=== PATIENT | female | born 1965 | race Hispanic/Latino ===

== ENCOUNTER 2022-09-08 16:30 | Inpatient (IN) | payer OTHER ==
[~2022-09-08] VITALS: Ht 167.6 cm; Wt 92.1 kg
[2022-09-08] MEDS ORDERED: ASPIRIN 325MG TAB PO ONE (17:00)
[2022-09-08 17:01] LABS: BASOPHILS % (AUTO) 1.1 % (0.0-5.0); EOSINOPHILS % (AUTO) 11.6 % (0.0-8.0); HEMATOCRIT 35.4 % (36-48); LYMPHOCYTES % (AUTO) 34.5 % (21.0-51.0); MEAN CORPUSCULAR HEMOGLOBIN 29.6 pg (27.0-33.0); MEAN CORPUSCULAR HGB CONC 33.1 g/dL (32.0-36.0); MEAN CORPUSCULAR VOLUME 89.6 fL (79-99); MONOCYTES % (AUTO) 5.3 % (3.0-13.0); NEUTROPHILS % (AUTO) 47.1 % (40.0-77.0); PLATELET COUNT (AUTO) 367 K/uL (130-400); RED BLOOD CELL COUNT(AUTO) 3.95 MIL/uL (4.00-5.50); RED CELL DISTRIBUTION WIDTH 12.7 % (11.0-15.5); WHITE BLOOD COUNT (AUTO) 14.7 K/uL (4.8-10.8)
[2022-09-08 17:10] LABS: INR 0.95 (0.85-1.15); PROTHROMBIN TIME 10.4 SEC (9.6-11.6)
[2022-09-08 17:11] LABS: CREATININE 1.2 mg/dL (0.5-1.5); POTASSIUM 4.3 mmol/L (3.5-5.1)
[2022-09-08 17:12] LABS: PARTIAL THROMBOPLASTIN TIME 30.2 SEC (26.3-35.5)
[2022-09-08 17:15] LABS: ALBUMIN 3.8 g/dL (3.5-5.0); TOTAL PROTEIN, SERUM 7.6 g/dL (6.0-8.3)
[2022-09-08 17:30] LABS: B-TYPE NATRIURETIC PEPTIDE 213 pg/mL (0-100)
[2022-09-08] MEDS ORDERED: MORPHINE 4 MG SYG IV PRN (21:00)
[2022-09-08] MEDS ORDERED: POTASSIUM CHLORIDE 20MEQ/100ML 100 ML IV PRN (21:00)
[2022-09-08] MEDS ORDERED: ONDANSETRON 4MG INJ IV PRN (21:00)
[2022-09-08] MEDS ORDERED: KCL 20 MEQ ERTAB PO PRN (21:00)
[2022-09-08] MEDS ORDERED: MORPHINE 2 MG SYG IV PRN (21:00)
[2022-09-08] MEDS ORDERED: POTASSIUM CHLORIDE 10% ELIXIR 20 MEQ/15 ML UDCUP PO PRN (21:00)
[2022-09-08] MEDS ORDERED: ACETAMINOPHEN 325 MG TAB PO PRN ×2 (21:00)
[2022-09-08] MEDS: NITROGLYCERIN 1GM OINT 1 INCH/1GM TD SCH (21:43)
[2022-09-08 22:29] VITALS: BP 163/74
[2022-09-08] MEDS ORDERED: SITA1TAB6 PO (23:23)
[2022-09-08] MEDS ORDERED: ISOS10TA2 PO (23:23)
[2022-09-08] MEDS ORDERED: PANT20TA18 PO (23:23)
[2022-09-08] MEDS ORDERED: TELM80TA2 PO (23:23)
[2022-09-08] MEDS ORDERED: CLOP-31 PO (23:23)
[2022-09-08 23:47] LABS: APPEARANCE,URINE CLEAR (CLEAR); BILIRUBIN,URINE NEGATIVE (NEGATIVE); COLOR,URINE LIGHT-YELLOW (YELLOW); GLUCOSE, URINE (UA) NEGATIVE (NEGATIVE); KETONES,URINE NEGATIVE (NEGATIVE); LEUKOCYTE ESTERASE ,URINE 250 Leu/uL (NEGATIVE); NITRATE,URINE NEGATIVE (NEGATIVE); OCCULT BLOOD,URINE NEGATIVE (NEGATIVE); PH,URINE 5.5 (5.0-8.0); PROTEIN,URINE NEGATIVE (NEGATIVE); UROBILINOGEN,URINE 0.2 mg/dL (0.2-1.0)
[2022-09-08 23:52] LABS: MUCUS,URINE RARE LPF (None Seen); SQUAMOUS EPITHELIAL CELL,UR FEW /HPF (0-2); WBC,URINE 26-50 /HPF (0-1)
[2022-09-09] VITALS: BP 129/72
[2022-09-09 04:00] VITALS: BP 122/68
[2022-09-09 05:07] LABS: EOSINOPHILS % (AUTO) 12.9 % (0.0-8.0); HEMATOCRIT 33.5 % (36-48); LYMPHOCYTES % (AUTO) 37.8 % (21.0-51.0); MEAN CORPUSCULAR HEMOGLOBIN 29.8 pg (27.0-33.0); MEAN CORPUSCULAR HGB CONC 33.4 g/dL (32.0-36.0); MEAN CORPUSCULAR VOLUME 89.1 fL (79-99); MONOCYTES % (AUTO) 7.5 % (3.0-13.0); NEUTROPHILS % (AUTO) 40.4 % (40.0-77.0); PLATELET COUNT (AUTO) 319 K/uL (130-400); RED BLOOD CELL COUNT(AUTO) 3.76 MIL/uL (4.00-5.50); RED CELL DISTRIBUTION WIDTH 12.6 % (11.0-15.5); WHITE BLOOD COUNT (AUTO) 13.2 K/uL (4.8-10.8)
[2022-09-09 05:25] LABS: CREATININE 1.2 mg/dL (0.5-1.5); MAGNESIUM 1.5 mg/dL (1.80-2.40); PHOSPHORUS 4.5 mg/dL (2.5-4.9)
[2022-09-09] MEDS: NITROGLYCERIN 1GM OINT 1 INCH/1GM TD SCH ×4 (05:29→19:41)
[2022-09-09 05:30] LABS: HEMOGLOBIN A1C 7.1 % (4.0-6.0)
[2022-09-09 07:30] VITALS: BP 117/71
[2022-09-09] MEDS: INSULIN HUMULIN R 100 UNIT/ML 3ML SQ SCH ×4 (07:30→21:03)
[2022-09-09] MEDS: PANTOPRAZOLE 40 MG TAB DR PO SCH (09:00)
[2022-09-09] MEDS: LOSARTAN 100 MG TABLET PO SCH (09:42)
[2022-09-09] MEDS: ISOSORBIDE DINITRATE 10MG TAB PO SCH ×2 (09:42→20:59)
[2022-09-09] MEDS: ENOXAPARIN SODIUM 40 MG/0.4 ML SYRINGE SQ SCH (09:43)
[2022-09-09] MEDS: FAMOTIDINE 20MG TAB PO SCH (09:43)
[2022-09-09] MEDS: ASPIRIN 81MG CHEW TAB PO SCH (09:43)
[2022-09-09] MEDS: MAGNESIUM 2GM PREMIX 50ML 50 ML IV PRN (11:15)
[2022-09-09 11:25] VITALS: BP 97/52
[2022-09-09] MEDS: CLOPIDOGREL 75MG TAB PO SCH (12:32)
[2022-09-09 15:25] VITALS: BP 122/67
[2022-09-09] MEDS: CEFTRIAXONE 1G VIAL IVPB SCH (15:39)
[2022-09-09 20:00] VITALS: BP 117/71
[2022-09-09] MEDS: ATORVASTATIN 40 MG TABLET PO SCH (20:59)
[2022-09-10] VITALS: BP 112/64
[2022-09-10] MEDS: NITROGLYCERIN 1GM OINT 1 INCH/1GM TD SCH ×4 (00:05→20:05)
[2022-09-10 04:00] VITALS: BP 123/68
[2022-09-10] MEDS: INSULIN HUMULIN R 100 UNIT/ML 3ML SQ SCH ×4 (05:39→20:08)
[2022-09-10 08:00] VITALS: BP 117/72
[2022-09-10] MEDS ORDERED: SIMV40TA59 PO (09:19)
[2022-09-10] MEDS ORDERED: METO100T14 PO (09:19)
[2022-09-10] MEDS: MAGNESIUM 2GM PREMIX 50ML 50 ML IV PRN (09:54)
[2022-09-10] MEDS: ENOXAPARIN SODIUM 40 MG/0.4 ML SYRINGE SQ SCH (09:54)
[2022-09-10] MEDS: PANTOPRAZOLE 40 MG TAB DR PO SCH (09:54)
[2022-09-10] MEDS: ISOSORBIDE DINITRATE 10MG TAB PO SCH ×2 (09:55→20:02)
[2022-09-10] MEDS: LOSARTAN 100 MG TABLET PO SCH (09:55)
[2022-09-10] MEDS: METOPROLOL TARTRATE 25 MG TAB PO SCH ×2 (09:55→20:02)
[2022-09-10] MEDS: ASPIRIN 81MG CHEW TAB PO SCH (09:55)
[2022-09-10] MEDS: FAMOTIDINE 20MG TAB PO SCH (09:55)
[2022-09-10 11:46] VITALS: BP 119/71
[2022-09-10] MEDS: CLOPIDOGREL 75MG TAB PO SCH ×2 (12:00→12:06)
[2022-09-10] MEDS: CEFTRIAXONE 1G VIAL IVPB SCH (15:07)
[2022-09-10 16:00] VITALS: BP 122/66
[2022-09-10 20:00] VITALS: BP 113/71
[2022-09-10] MEDS: ATORVASTATIN 40 MG TABLET PO SCH (20:02)
[2022-09-10] MEDS ORDERED: METOPROLOL TARTRATE 25 MG TAB PO SCH (21:00)
[2022-09-11] VITALS: BP 108/63
[2022-09-11] MEDS: NITROGLYCERIN 1GM OINT 1 INCH/1GM TD SCH ×3 (03:33→20:45)
[2022-09-11 04:00] VITALS: BP 109/63
[2022-09-11 05:29] LABS: BASOPHILS % (AUTO) 1.2 % (0.0-5.0); EOSINOPHILS % (AUTO) 12.8 % (0.0-8.0); HEMATOCRIT 34.1 % (36-48); LYMPHOCYTES % (AUTO) 35.6 % (21.0-51.0); MEAN CORPUSCULAR HEMOGLOBIN 29.9 pg (27.0-33.0); MEAN CORPUSCULAR HGB CONC 33.7 g/dL (32.0-36.0); MEAN CORPUSCULAR VOLUME 88.8 fL (79-99); MONOCYTES % (AUTO) 7.9 % (3.0-13.0); NEUTROPHILS % (AUTO) 41.9 % (40.0-77.0); PLATELET COUNT (AUTO) 329 K/uL (130-400); RED BLOOD CELL COUNT(AUTO) 3.84 MIL/uL (4.00-5.50); RED CELL DISTRIBUTION WIDTH 12.7 % (11.0-15.5); WHITE BLOOD COUNT (AUTO) 11.4 K/uL (4.8-10.8)
[2022-09-11 05:51] LABS: ALBUMIN 3.3 g/dL (3.5-5.0); MAGNESIUM 2.1 mg/dL (1.80-2.40); POTASSIUM 3.7 mmol/L (3.5-5.1); TOTAL PROTEIN, SERUM 6.9 g/dL (6.0-8.3)
[2022-09-11] MEDS: INSULIN HUMULIN R 100 UNIT/ML 3ML SQ SCH ×4 (06:43→21:17)
[2022-09-11 08:00] VITALS: BP 116/76
[2022-09-11] MEDS: METOPROLOL TARTRATE 25 MG TAB PO SCH ×4 (09:00→20:48)
[2022-09-11] MEDS: LOSARTAN 100 MG TABLET PO SCH (09:48)
[2022-09-11] MEDS: PANTOPRAZOLE 40 MG TAB DR PO SCH (09:48)
[2022-09-11] MEDS: ENOXAPARIN SODIUM 40 MG/0.4 ML SYRINGE SQ SCH (09:48)
[2022-09-11] MEDS: ISOSORBIDE DINITRATE 10MG TAB PO SCH ×2 (09:48→20:44)
[2022-09-11] MEDS: ASPIRIN 81MG CHEW TAB PO SCH (09:48)
[2022-09-11] MEDS: FAMOTIDINE 20MG TAB PO SCH (09:48)
[2022-09-11 12:00] VITALS: BP 108/63
[2022-09-11] MEDS: CLOPIDOGREL 75MG TAB PO SCH (12:00)
[2022-09-11] MEDS: CEFTRIAXONE 1G VIAL IVPB SCH (15:22)
[2022-09-11 16:00] VITALS: BP 140/61
[2022-09-11 20:00] VITALS: BP 126/73
[2022-09-11] MEDS: DOCUSATE SODIUM 100 MG CAP PO SCH (20:44)
[2022-09-11] MEDS: ATORVASTATIN 40 MG TABLET PO SCH (20:44)
[2022-09-11] MEDS ORDERED: IPRATROPIUM 0.5 MG/2.5 ML INH IH ONE (22:37)
[2022-09-11] MEDS: IPRATROPIUM 0.5 MG/2.5 ML INH IH SCH (23:42)
[2022-09-12] VITALS: BP 105/59
[2022-09-12 04:00] VITALS: BP 128/70
[2022-09-12] MEDS: NITROGLYCERIN 1GM OINT 1 INCH/1GM TD SCH ×2 (04:14→12:30)
[2022-09-12 04:37] LABS: BASOPHILS % (AUTO) 1.3 % (0.0-5.0); EOSINOPHILS % (AUTO) 12.2 % (0.0-8.0); HEMATOCRIT 34.4 % (36-48); LYMPHOCYTES % (AUTO) 39.6 % (21.0-51.0); MEAN CORPUSCULAR HEMOGLOBIN 29.4 pg (27.0-33.0); MEAN CORPUSCULAR HGB CONC 33.1 g/dL (32.0-36.0); MEAN CORPUSCULAR VOLUME 88.7 fL (79-99); MONOCYTES % (AUTO) 7.2 % (3.0-13.0); NEUTROPHILS % (AUTO) 39.1 % (40.0-77.0); PLATELET COUNT (AUTO) 341 K/uL (130-400); RED BLOOD CELL COUNT(AUTO) 3.88 MIL/uL (4.00-5.50); RED CELL DISTRIBUTION WIDTH 12.8 % (11.0-15.5); WHITE BLOOD COUNT (AUTO) 11.9 K/uL (4.8-10.8)
[2022-09-12 04:56] LABS: ALBUMIN 3.4 g/dL (3.5-5.0); CREATININE 0.9 mg/dL (0.5-1.5); POTASSIUM 3.7 mmol/L (3.5-5.1)
[2022-09-12] MEDS: INSULIN HUMULIN R 100 UNIT/ML 3ML SQ SCH ×2 (05:38→12:34)
[2022-09-12] MEDS: IPRATROPIUM 0.5 MG/2.5 ML INH IH SCH ×2 (06:31→11:14)
[2022-09-12 08:00] VITALS: BP 119/73
[2022-09-12] MEDS ORDERED: ISOSORBIDE DINITRATE 10MG TAB PO SCH (09:00)
[2022-09-12] MEDS ORDERED: POLYETHYLENE GLYCOL 3350 17 GM POWD.PACK PO SCH (09:00)
[2022-09-12] MEDS: METOPROLOL TARTRATE 25 MG TAB PO SCH ×2 (09:53→09:56)
[2022-09-12] MEDS: ENOXAPARIN SODIUM 40 MG/0.4 ML SYRINGE SQ SCH (09:53)
[2022-09-12] MEDS: DOCUSATE SODIUM 100 MG CAP PO SCH (09:53)
[2022-09-12] MEDS: FAMOTIDINE 20MG TAB PO SCH (09:53)
[2022-09-12] MEDS: PANTOPRAZOLE 40 MG TAB DR PO SCH (09:53)
[2022-09-12] MEDS: LOSARTAN 100 MG TABLET PO SCH (09:53)
[2022-09-12] MEDS: ASPIRIN 81MG CHEW TAB PO SCH (09:53)
[2022-09-12 11:49] VITALS: BP 101/64
[2022-09-12] MEDS: CLOPIDOGREL 75MG TAB PO SCH (12:29)
== END 2022-09-12 16:30 | disposition home or self-care (01) | DRG 303 ==
LOC: EDH 16:30 → EDHIP 16:31 → 4BH 22:05
PROVIDERS: ADMIT Internal Medicine; ATTEND Internal Medicine
DX: I25.10 Atherosclerotic heart disease of native coronary artery without angina pectoris (principal); N39.0 Urinary tract infection, site not specified; E11.319 Type 2 diabetes mellitus with unspecified diabetic retinopathy without macular edema; I25.5 Ischemic cardiomyopathy; E78.5 Hyperlipidemia, unspecified; F32.A Depression, unspecified; F41.9 Anxiety disorder, unspecified; I10 Essential (primary) hypertension; T44.7X5A Adverse effect of beta-adrenoreceptor antagonists, initial encounter; Z79.82 Long term (current) use of aspirin; Z79.899 Other long term (current) drug therapy; Z90.710 Acquired absence of both cervix and uterus
CPT/HCPCS: 36415; 71045; 80048; 80053; 80061; 81001; 82948; 83036; 83735; 83880; 84100; 84145; 84484; 85025; 85610; 85730; 87040; 87088; 93005; 93306; 93356; 93880; 94010; 94640; 94664; G0378; J0696; J1650; J1815; J3475